=== PATIENT | female | born 1985 | race Caucasian/White ===

== ENCOUNTER 2021-08-24 06:46 | Emergency (ER) | payer OTHER, SELFPAY ==
[2021-08-24 06:54] VITALS: BP 126/97; PULSE 95; RESP 18; TEMP 36.7; O2SAT 99
[2021-08-24] MEDS: Lactated Ringers 1,000 ML 1000 ML IV (07:26)
[2021-08-24] MEDS: Droperidol 5 MG/2 ML VIAL 1.25 MG IVP (07:27)
[2021-08-24 07:28] LABS: Abs Immature Grans 0.04 10^3/uL (0.0-0.06); Absolute Basophil Count 0.05 10^3/uL (0.0-0.2); Absolute Monocyte Count 0.25 10^3/uL (0.1-0.8); Basophils % 0.3; Eosinophils % 0.1; HCT 41.7 % (36.0-46.0); HGB 14.9 g/dL (11.2-15.7); Immature Grans % 0.2; Lymphocytes % 5.4; MCH 31.2 pg (27.0-33.0); MCHC 35.7 % (32.0-36.0); MCV 87 fL (80-95); MPV 10.9 fL (8.0-11.0); Monocytes % 1.5; Neutrophils % 92.5; RBC 4.78 10^6/uL (3.93-5.22); RDW 11.5 % (11.7-14.6); RDW-SD 36.8 fL; WBC 16.52 10^3/uL (4.4-10.8)
[2021-08-24 07:31] LABS: Bilirubin Negative (Negative); Blood Moderate (Negative); Clarity Sl Cloudy (Clear); Glucose Negative (Negative); Ketones 80 mg/dL (Negative); Leukocyte Esterase Negative (Negative); Nitrite Negative (Negative); Specific Gravity 1.025 (1.005-1.025); Urobilinogen 0.2 EU/dL (Up TO 0.2); pH 8.5 (5-8)
[2021-08-24 07:32] LABS: Absolute Eosinophil Count 0.02 10^3/uL (0.0-0.7); Absolute Lymphocyte Count 0.89 10^3/uL (1.2-3.4); Absolute Neutrophil Count 15.28 10^3/uL (1.2-6.7)
--- NOTE | 2021-08-24 07:44 | ED.GENADUL_ITS ---
Discharge Plan Disposition Patient Disposition: STILL A PATIENT Condition: Serious Discharge Details Chief Complaint: Nausea/Vomit/Diar Clinical Impression: Severe nausea and vomiting Primary Care Provider: Unknown,Unknown ED Provider: Jag Choudhary Home Meds and New Rx's Prescriptions: No Action lorazepam [Ativan] 1 mg Tablet 1 mg PO DAILY PRN Medical Decision Making 35-year-old female here with severe pain and vomiting over the past 12 hours. Patient peers dehydrated. She does have some abdominal cramping and diffuse tenderness with no peritoneal findings. Plan to give droperidol 1.25 IV for nausea. IV fluid bolus. Will check labs to assess for biliary or pancreatic disease and electrolyte abnormalities. HPI General Mode of arrival: ambulatory . Date/Time Provider Initiated Documentation: 08/24/21 06:49 . Limitations to Documentation: no limitations . Information obtained by: patient . HPI Narrative: 35-year-old female presents with chief complaint of nausea. Patient notes nausea and associated vomiting for the past 12 hours. Symptoms are severe. Unable to tolerate any p.o. intake. Patient has associated diffuse abdominal cramping that started after vomiting. Related Data Home Medications Medication Instructions Recorded Confirmed lorazepam 1 mg tablet (Ativan) 1 mg PO DAILY PRN 08/24/21 08/24/21 Allergies Allergy/AdvReac Type Severity Reaction Status Date / Time acetaminophen [From Percocet] Allergy Unverified 08/24/21 07:00 Opioids - Morphine Analogues Allergy Unverified 08/24/21 07:00 oxycodone [From Percocet] Allergy Unverified 08/24/21 07:00 General Stated Complaint: Nausea/Vomit/Diar ANA: 3 Review of Systems All systems reviewed & are unremarkable except as noted in HPI and below Constitutional Constitutional: Denies fever(s) Gastrointestinal Gastrointestinal: Reports as per HPI PFSH All Active Problems (Updated 08/24/21 @ 08:13 by Jag Choudhary MD) Severe nausea and vomiting (Acute) Social History Smoking/Tobacco Use Status: Never Smoking risk assessment performed?: Yes Alcohol Intake: current Alcohol Intake frequency: a few times a week Drug use: Daily Substance use type: marijuana Do you feel safe at home: Yes Do you feel safe in your relationship?: Yes Exam Const General: cooperative and no acute distress HENMT Mouth: mucous membranes dry Eyes Conjunctivae: normal conjunctivae Sclera: normal sclerae Resp Auscultation: clear to auscultation bilaterally, no rales, no rhonchi and no wheezes Cardio Jugular venous pressure: no JVD Rate: regular rate and not tachycardic Rhythm: regular rhythm GI Palpation: soft, not firm, no guarding, no masses, not rigid and tender (Diffuse) with no rebound tenderness Skin General skin exam: no rashes or lesions noted Neuro General: patient alert, patient awake and tone normal Extrem General: no edema Psych Appearance: grossly normal Mental Status: mental status grossly normal Speech and Movement: speech and movement normal Course Vital Signs Vital signs: Vital Signs Temperature 36.7 C 08/24/21 06:54 Pulse 95 H 08/24/21 06:54 Respiratory Rate 18 08/24/21 06:54 Blood Pressure 126/97 H 08/24/21 06:54 Pulse Oximetry 99 08/24/21 06:54 Temperature 36.7 C 08/24/21 06:54 Pulse 95 H 08/24/21 06:54 Respiratory Rate 18 08/24/21 06:54 Blood Pressure 126/97 H 08/24/21 06:54 Pulse Oximetry 99 08/24/21 06:54 Lab/Test Results Lab/Test Results: Laboratory Tests Range/Units 08/24/21 08/24/21 06:55 07:13 Sodium Cancelled Potassium Cancelled Chloride Cancelled Carbon Dioxide Cancelled Anion Gap Cancelled BUN Cancelled Creatinine Cancelled Estimated GFR/1.73 m2 Cancelled Glucose Cancelled Calcium Cancelled Total Bilirubin Cancelled AST Cancelled ALT Cancelled Alkaline Phosphatase Cancelled Total Protein Cancelled Albumin Cancelled Urine Color (Yellow) Yellow Urine Clarity (Clear) Sl Cloudy Urine pH (5-8) 8.5 H Ur Specific [place] (1.005-1.025) 1.025 Urine Protein (Negative) mg/dL 30 H Urine Ketones (Negative) mg/dL 80 H Urine Blood (Negative) Moderate H Urine Nitrite (Negative) Negative Urine Bilirubin (Negative) Negative Urine Urobilinogen (Up TO 0.2) EU/dL 0.2 Ur Leukocyte Esterase (Negative) Negative Urine Glucose (Negative) mg/dL Negative POC- Test(urine) Negative
[2021-08-24 07:47] LABS: Bacteria Few HPF (Negative); C & S Indicated? Yes; Casts Negative LPF (Negative); Crystals Negative HPF (Negative); Epithelial Cells Few HPF (Negative); Mucus Moderate (Negative); WBC 0-2 HPF (0-5)
[2021-08-24 07:56] LABS: ALT 29 U/L (14-59); AST 24 U/L (15-37); Albumin 4.8 g/dL (3.4-5.0); Alkaline Phosphatase 73 U/L (46-116); Anion Gap 14.1 mmol/L (3-11); BUN 7 mg/dL (7-18); Bilirubin, Total 0.7 mg/dL (0.2-1.0); CO2 22.9 mmol/L (21.0-32.0); CREATININE 0.9 mg/dL (0.55-1.02); Calcium 9.5 mg/dL (8.5-10.1); Chloride 100 mmol/L (98-107); Glucose 144 mg/dL (74-106); Lipase 65 U/L (73-393); Magnesium 1.5 mg/dL (1.8-2.4); Potassium 3.8 mmol/L (3.5-5.1); Sodium 137 mmol/L (136-145); Total Protein 8.8 g/dL (6.4-8.2)
[2021-08-24 08:21] LABS: Diff Comment Agrees w/ Instrument; Platelet Count 342 10^3/uL (130-400); RBC Morphology Normal
--- NOTE | 2021-08-24 08:21 | NUR.NOTE ---
pt feels a lot better, nausea and vomittin have subsided.Briseida
--- NOTE | 2021-08-24 08:37 | W.EDPROG ---
Date of service: 08/24/21 Time of Service: 08:37 Medical Decision Making 35 yo female signed out to me pending reassessment of her symptoms of n/v and abdomen pain. she is now stating she feels significantly better and requesting to go home. She states she is not on her period, has blood in her urine and some bacteria, denies any dysuria but given the blood will treat as possible cystitis. She has no cva tenderness, no fevers so doubt pyelo. Her wbc is 16 which is likely reactive from the n/v. She tolerated po mag and will have her increase this in her diet. Advised to f/u with pcp and return precautions given Differential Diagnosis Differential Diagnosis: cannabinoid hyperemesis, uti, gastroenteritis Lab Data Lab results reviewed: Yes I reviewed the patient's lab results. Sign Out Sign Out Data: Sign Out Comment: Follow-up additional labs including CBC, reassess patient for disposition. Last updated by Jag Choudhary MD at 08/24/21 08:14 Discharge Plan Disposition Patient Disposition: HOME Condition: Stable Discharge Details Clinical Impression: Severe nausea and vomiting, Hematuria, Hypomagnesemia Primary Care Provider: Unknown,Unknown ED Provider: Luis Park Home Meds and New Rx's Prescriptions: New ondansetron 4 mg tablet,disintegrating 4 mg PO Q8H PRN (Reason: nausea and vomiting) Qty: 30 0RF nitrofurantoin monohyd/m-cryst [Macrobid] 100 mg capsule 100 mg PO Q12H 5 Days Qty: 10 0RF Rx Instructions: must administer with a meal/food Continued lorazepam [Ativan] 1 mg Tablet 1 mg PO DAILY PRN Discharge Instructions Instructions: Acute Nausea and Vomiting (ED), Hypomagnesemia (ED) Additional Instructions: you did have blood in your urine. You should follow up with your primary care provider within 2 weeks to see if this has cleared If you feel more ill, have severe worsening pain or persistent vomit despite medicaitons return to the emergency department
[2021-08-24] MEDS: Magnesium Chloride 64 MG TABCR PO (08:43)
[2021-08-24 08:48] VITALS: BP 132/76; PULSE 78; RESP 16; O2SAT 99
--- NOTE | 2021-08-28 13:41 | CMACTNOTE_ITS ---
- If Service Date Differs Date of service: 08/27/21 Time of Service: 13:42 Care Management Activity Note Laura is seen in the ED on 08/24/21 and again on 08/25/21 for nausea and vomiting. At the request of ED provider, ANETTE coordinates a referral to TORI Ospina, of [facility], on-call provider, to assist Lauar in obtaining a follow up appointment and in establishing care with a local PCP.
== END 2021-08-24 08:49 | disposition home or self-care (01) ==
PROVIDERS: Student in an Organized Health Care Education/Training Program; Emergency Provider Emergency Medicine
DX: R11.2 Nausea with vomiting, unspecified (principal); R31.9 Hematuria, unspecified; E83.42 Hypomagnesemia
CPT/HCPCS: 36415; 80053; 81025; 83690; 96361; 96374; 99284; 81003; 81015; 83735; 85025; 87086; J1790

== ENCOUNTER 2021-08-25 19:07 | Emergency (ER) | payer OTHER, SELFPAY ==
[2021-08-25 19:12] VITALS: BP 159/70; PULSE 73; RESP 14; TEMP 36.4; O2SAT 100
[2021-08-25 19:32] LABS: Abs Immature Grans 0.05 10^3/uL (0.0-0.06); Absolute Basophil Count 0.05 10^3/uL (0.0-0.2); Absolute Monocyte Count 0.55 10^3/uL (0.1-0.8); Absolute Neutrophil Count 12.64 10^3/uL (1.2-6.7); Basophils % 0.3; Eosinophils % 0.1; HCT 42.1 % (36.0-46.0); HGB 14.9 g/dL (11.2-15.7); Immature Grans % 0.3; MCH 31.1 pg (27.0-33.0); MCHC 35.4 % (32.0-36.0); MCV 88 fL (80-95); MPV 10.3 fL (8.0-11.0); Monocytes % 3.6; Neutrophils % 82.7; Platelet Count 347 10^3/uL (130-400); RBC 4.79 10^6/uL (3.93-5.22); RDW 11.6 % (11.7-14.6); RDW-SD 37.4 fL; WBC 15.28 10^3/uL (4.4-10.8)
[2021-08-25 19:33] LABS: Absolute Eosinophil Count 0.02 10^3/uL (0.0-0.7); Absolute Lymphocyte Count 1.99 10^3/uL (1.2-3.4)
[2021-08-25 19:45] LABS: ALT 24 U/L (14-59); AST 24 U/L (15-37); Albumin 4.5 g/dL (3.4-5.0); Alkaline Phosphatase 67 U/L (46-116); BUN 20 mg/dL (7-18); CREATININE 0.8 mg/dL (0.55-1.02); Calcium 9.3 mg/dL (8.5-10.1); Chloride 99 mmol/L (98-107); Glucose 105 mg/dL (74-106); Lipase 89 U/L (73-393); Potassium 3.4 mmol/L (3.5-5.1); Sodium 137 mmol/L (136-145); Total Protein 8.7 g/dL (6.4-8.2)
[2021-08-25] MEDS: Normal Saline 1,000 ML 1000 ML IV (19:52)
[2021-08-25] MEDS: Droperidol 5 MG/2 ML VIAL 1.25 MG IVP (19:52)
[2021-08-25 20:16] LABS: Bilirubin Small (Negative); Blood Moderate (Negative); Clarity Cloudy (Clear); Glucose Negative (Negative); Ketones >=160 mg/dL (Negative); Leukocyte Esterase Negative (Negative); Nitrite Negative (Negative); Specific Gravity >= 1.030 (1.005-1.025); Urobilinogen 0.2 EU/dL (Up TO 0.2)
--- NOTE | 2021-08-25 20:22 | ED.GENADUL_ITS ---
Discharge Plan Disposition Patient Disposition: HOME Condition: Improving Discharge Details Clinical Impression: Severe nausea and vomiting, Hypokalemia, Hematuria Primary Care Provider: Unknown,Unknown ED Provider: Tyler William Home Meds and New Rx's Prescriptions: Continued lorazepam [Ativan] 1 mg Tablet 1 mg PO DAILY PRN ondansetron 4 mg tablet,disintegrating 4 mg PO Q8H PRN (Reason: nausea and vomiting) Qty: 30 0RF nitrofurantoin monohyd/m-cryst [Macrobid] 100 mg capsule 100 mg PO Q12H 5 Days Qty: 10 0RF Rx Instructions: must administer with a meal/food Discharge Instructions Instructions: Acute Nausea and Vomiting (ED), Hematuria (ED), Hypokalemia (ED) Additional Instructions: Zofran and Macrobid as directed. I have given you a dose of Macrobid now and a take-home pack of Zofran. Plenty of fluids to avoid dehydration. Clear liquid diet, advance as tolerated. I have placed you on the care management list to help expedite outpatient primary care follow-up. Please watch for new or worsening symptoms and return to the ER for any concerns. Medical Decision Making This is a 35-year-old female, recently moved to this area, but does not have a primary care provider, denies any significant past medical history or abdominal surgeries, presents to the ER for 3-day history of abdominal cramping, nausea, vomiting, diarrhea yesterday but no diarrhea today. She does smoke marijuana on a daily basis. She was seen in the ER yesterday responded well to medications and was discharged with a prescription that she was unable to fill. Patient is concerned about dehydration. Reviewed the patient's visit from yesterday. Plan is to obtain IV access, give IV fluid, give IV droperidol as it worked well yesterday, obtain routine laboratory screening values and reassess. Abdomen is soft, nontender, low suspicion for acute abdomen. Low suspicion for pancreatitis, biliary colic, etc. No right lower quadrant pain, extremely low suspicion for appendicitis. Presentation not consistent with ovarian torsion. We did discuss that she smokes marijuana daily and discussed cannabinoid hyperemesis and she stated I am not fucking allergic to pot. Laboratory values reveal a white blood cell count of 15.28 which is actually improved when compared to yesterday. Potassium of 3.4, will give 40 p.o. Anion gap elevated at 17. She is receiving 1 L IV fluid. Upon arrival she was anxious and hyperventilating. Creatinine 0.8 with a GFR greater than 60. LFTs are unremarkable, lipase 89. Magnesium 2.0. Urinalysis reveals greater than 160 ketones. No signs of infection. She does have hematuria which is unchanged from yesterday. Upon reevaluation patient is resting comfortably, no longer dry heaving. She appears calm, no longer anxious or hyperventilating. She was able to tolerate the p.o. potassium without difficulty and has been no vomiting after her initial dose of antiemetics. The patient states that she is feeling improvement and is comfortable with discharge at this time. Clinically her her abdomen is soft, nontender, nonsurgical and her leukocytosis is improving when compared to yesterday. I see no clear indication for emergent CT imaging with IV contrast. I have placed her on the care management list to help expedite outpatient primary care follow-up as she is new to the area. I will provide her a take- home pack of Zofran to get her through the night until she can fill the prescription tomorrow. Patient was placed on Macrobid yesterday for potential UTI, I will give her dose of Macrobid now as well until she can fill her prescription tomorrow. Standard discharge and return precautions were provided. Patient understands, is agreeable to this plan, and has no additional questions or concerns upon discharge. This documentation was generated using [employer] dictation system, please disregard any oddities of phrase or misspellings. Medical Records Medical records reviewed: Yes I reviewed the patient's medical records. Lab Data Lab results reviewed: Yes I reviewed the patient's lab results. Labs: Laboratory Tests Range/Units 08/25/21 08/25/21 08/25/21 19:25 19:25 19:25 WBC (4.4-10.8) 10^3/uL 15.28 H RBC (3.93-5.22) 10^6/uL 4.79 Hgb (11.2-15.7) g/dL 14.9 Hct (36.0-46.0) % 42.1 MCV (80-95) fL 88 MCH (27.0-33.0) pg 31.1 MCHC (32.0-36.0) % 35.4 RDW (11.7-14.6) % 11.6 L Plt Count (130-400) 10^3/uL 347 MPV (8.0-11.0) fL 10.3 Immature Gran % 0.3 Neutrophils % 82.7 Lymphocytes % 13.0 Monocytes % 3.6 Eosinophils % 0.1 Basophils % 0.3 Nucleated RBC % (0.0-0.3) % 0.0 Absolute Neutrophils (1.2-6.7) 10^3/uL 12.64 H Absolute Lymphocytes (1.2-3.4) 10^3/uL 1.99 Absolute Monocytes (0.1-0.8) 10^3/uL 0.55 Absolute Eosinophils (0.0-0.7) 10^3/uL 0.02 Absolute Basophils (0.0-0.2) 10^3/uL 0.05 Sodium (136-145) mmol/L 137 Potassium (3.5-5.1) mmol/L 3.4 L Chloride (98-107) mmol/L 99 Carbon Dioxide (21.0-32.0) mmol/L 21.0 Anion Gap (3-11) mmol/L 17.0 H BUN (7-18) mg/dL 20 H Creatinine (0.55-1.02) mg/dL 0.8 Estimated GFR/1.73 m2 (mL/min/1.73m2) >= 60.00 Glucose (74-106) mg/dL 105 Calcium (8.5-10.1) mg/dL 9.3 Magnesium (1.8-2.4) mg/dL 2.0 Total Bilirubin (0.2-1.0) mg/dL 1.0 AST (15-37) U/L 24 ALT (14-59) U/L 24 Alkaline Phosphatase (46-116) U/L 67 Total Protein (6.4-8.2) g/dL 8.7 H Albumin (3.4-5.0) g/dL 4.5 Lipase (73-393) U/L 89 Urine Color (Yellow) Urine Clarity (Clear) Urine pH (5-8) Ur Specific [place] (1.005-1.025) Urine Protein (Negative) mg/dL Urine Ketones (Negative) mg/dL Urine Blood (Negative) Urine Nitrite (Negative) Urine Bilirubin (Negative) Urine Urobilinogen (Up TO 0.2) EU/dL Ur Leukocyte Esterase (Negative) Urine RBC (0-2) HPF Urine WBC (0-5) HPF Ur Epithelial Cells (Negative) HPF Urine Crystals (Negative) HPF Urine Bacteria (Negative) HPF Urine Mucus (Negative) Ur Culture Indicated? Urine Glucose (Negative) mg/dL Urine Opiates Screen (Negative) Urine Methadone Screen (Negative) Ur Barbiturates Screen (Negative) Ur Tricyclics Screen (Negative) Ur Amphetamines Screen (Negative) U Benzodiazepines Scrn (Negative) Urine Cocaine Screen (Negative) Ur THC Screen (Negative) Range/Units 08/25/21 08/25/21 20:10 20:10 WBC (4.4-10.8) 10^3/uL RBC (3.93-5.22) 10^6/uL Hgb (11.2-15.7) g/dL Hct (36.0-46.0) % MCV (80-95) fL MCH (27.0-33.0) pg MCHC (32.0-36.0) % RDW (11.7-14.6) % Plt Count (130-400) 10^3/uL MPV (8.0-11.0) fL Immature Gran % Neutrophils % Lymphocytes % Monocytes % Eosinophils % Basophils % Nucleated RBC % (0.0-0.3) % Absolute Neutrophils (1.2-6.7) 10^3/uL Absolute Lymphocytes (1.2-3.4) 10^3/uL Absolute Monocytes (0.1-0.8) 10^3/uL Absolute Eosinophils (0.0-0.7) 10^3/uL Absolute Basophils (0.0-0.2) 10^3/uL Sodium (136-145) mmol/L Potassium (3.5-5.1) mmol/L Chloride (98-107) mmol/L Carbon Dioxide (21.0-32.0) mmol/L Anion Gap (3-11) mmol/L BUN (7-18) mg/dL Creatinine (0.55-1.02) mg/dL Estimated GFR/1.73 m2 (mL/min/1.73m2) Glucose (74-106) mg/dL Calcium (8.5-10.1) mg/dL Magnesium (1.8-2.4) mg/dL Total Bilirubin (0.2-1.0) mg/dL AST (15-37) U/L ALT (14-59) U/L Alkaline Phosphatase (46-116) U/L Total Protein (6.4-8.2) g/dL Albumin (3.4-5.0) g/dL Lipase (73-393) U/L Urine Color (Yellow) Yellow Urine Clarity (Clear) Cloudy Urine pH (5-8) 6.0 Ur Specific [place] (1.005-1.025) >= 1.030 H Urine Protein (Negative) mg/dL 30 H Urine Ketones (Negative) mg/dL >=160 H Urine Blood (Negative) Moderate H Urine Nitrite (Negative) Negative Urine Bilirubin (Negative) Small H Urine Urobilinogen (Up TO 0.2) EU/dL 0.2 Ur Leukocyte Esterase (Negative) Negative Urine RBC (0-2) HPF 0-2 Urine WBC (0-5) HPF 3-5 Ur Epithelial Cells (Negative) HPF Many Urine Crystals (Negative) HPF Negative Urine Bacteria (Negative) HPF Few Urine Mucus (Negative) Heavy Ur Culture Indicated? No Urine Glucose (Negative) mg/dL Negative Urine Opiates Screen (Negative) Negative Urine Methadone Screen (Negative) Negative Ur Barbiturates Screen (Negative) Negative Ur Tricyclics Screen (Negative) Negative Ur Amphetamines Screen (Negative) Negative U Benzodiazepines Scrn (Negative) Negative Urine Cocaine Screen (Negative) Negative Ur THC Screen (Negative) Positive A HPI General Mode of arrival: ambulatory . Date/Time Provider Initiated Documentation: 08/25/21 19:07 . Limitations to Documentation: no limitations . Information obtained by: patient and family . History of Present Illness 35 year old F presents to the emergency department with the chief complaint of Nausea and vomiting, described as moderate, with intensity rated at 5. Quality is described as other (Cramping), and is localized to the abdomen. Patient reports no radiation. Patient started experiencing this day(s) (3) and it has been intermittent. No relieving factors improve symptom(s), No exacerbating factors reported . Patient notes nausea/vomiting and other (Diarrhea yesterday, none today). Patient did receive the following treatments prior to arrival, none Related Data Home Medications Medication Instructions Recorded Confirmed lorazepam 1 mg tablet (Ativan) 1 mg PO DAILY PRN 08/24/21 08/24/21 nitrofurantoin 100 mg PO Q12H 5 days #10 caps 08/24/21 monohydrate/macrocrystals 100 mg capsule (Macrobid) ondansetron 4 mg disintegrating 4 mg PO Q8H PRN nausea and 08/24/21 tablet vomiting #30 tabs Previous Rx's Medication Instructions Recorded nitrofurantoin 100 mg PO Q12H 5 days #10 caps 08/24/21 monohydrate/macrocrystals 100 mg capsule (Macrobid) ondansetron 4 mg disintegrating 4 mg PO Q8H PRN nausea and 08/24/21 tablet vomiting #30 tabs Allergies Allergy/AdvReac Type Severity Reaction Status Date / Time acetaminophen [From Percocet] Allergy Unverified 08/25/21 19:17 Opioids - Morphine Analogues Allergy Unverified 08/25/21 19:17 oxycodone [From Percocet] Allergy Unverified 08/25/21 19:17 General Stated Complaint: Nausea/Vomit/Diar ANA: 3 Review of Systems Constitutional Constitutional: Denies fever(s) and Reports weakness (Generalized) Cardiovascular Cardiovascular: Denies chest pain and Denies dyspnea Respiratory Respiratory: Denies cough and Denies dyspnea Gastrointestinal Gastrointestinal: Reports abdominal pain, Denies constipation, Reports diarrhea (Yesterday), Reports nausea and Reports vomiting Genitourinary Genitourinary: Denies dysuria Musculoskeletal Musculoskeletal: Denies back pain Integumentary/Breasts Skin/Breast: Denies rash Neurologic Neurologic: Reports weakness (Generalized) PFSH All Active Problems (Updated 08/25/21 @ 21:32 by DINO Fung) Severe nausea and vomiting (Acute) Hematuria (Acute) Hypomagnesemia (Acute) Hypokalemia (Acute) Social History Smoking/Tobacco Use Status: Never Smoking risk assessment performed?: Yes Alcohol Intake: current Alcohol Intake frequency: a few times a week Drug use: Daily Substance use type: marijuana Do you feel safe at home: Yes Do you feel safe in your relationship?: Yes Exam Const General: cooperative, healthy appearing, comfortable, anxious and other (Occasionally dry heaving) Orientation: alert, awake and oriented x3 HENMT Head: normal to inspection, normocephalic and atraumatic Face and sinus: normal facial exam Mouth: moist mucous membranes Eyes General: appearance normal, both eyes and all related structures Conjunctivae: conjunctivae normal Neck Neck: normal visual inspection, full ROM, trachea midline and supple Resp Effort & Inspection: able to speak in complete sentences and other (Mild hyperventilation) Auscultation: clear to auscultation bilaterally Cardio Rate: regular rate Rhythm: regular rhythm GI Inspection: normal to inspection Palpation: soft, not firm, no guarding, no pulsatile masses and nontender Auscultation: normal bowel sounds Back/Spine/Pelvis Back: No back tenderness Skin General skin exam: no rashes or lesions noted Neuro General: patient alert, patient awake, patient oriented x3, moves all extremities and no focal motor deficits Cognition: normal cognition Speech: speech normal Gait: normal gait Motor: muscle tone normal throughout Sensory Exam: no sensory deficits noted Extrem General: normal to inspection, full ROM and capillary refill normal Psych Appearance: grossly normal Mental Status: mental status grossly normal Course Vital Signs Vital signs: Vital Signs Temperature 36.4 C L 08/25/21 19:12 Pulse 73 08/25/21 19:12 Respiratory Rate 14 08/25/21 19:12 Blood Pressure 159/70 H 08/25/21 19:12 Pulse Oximetry 100 08/25/21 19:12 Temperature 36.4 C L 08/25/21 19:12 Temperature Source Temporal Artery Scan 08/25/21 19:12 Pulse 73 08/25/21 19:12 Respiratory Rate 14 08/25/21 19:12 Respiratory Effort Non-Labored 08/25/21 19:15 Blood Pressure 159/70 H 08/25/21 19:12 Blood Pressure Position Supine 08/25/21 19:12 Pulse Oximetry 100 08/25/21 19:12 Oxygen Delivery Method Room Air 08/25/21 19:12 Oxygen Flow Rate 0 08/25/21 19:12 Pain Level 0 08/25/21 19:12 Lab/Test Results Lab/Test Results: Laboratory Tests Range/Units 08/25/21 08/25/21 08/25/21 19:25 19:25 19:25 WBC (4.4-10.8) 10^3/uL 15.28 H RBC (3.93-5.22) 10^6/uL 4.79 Hgb (11.2-15.7) g/dL 14.9 Hct (36.0-46.0) % 42.1 MCV (80-95) fL 88 MCH (27.0-33.0) pg 31.1 MCHC (32.0-36.0) % 35.4 RDW (11.7-14.6) % 11.6 L Plt Count (130-400) 10^3/uL 347 MPV (8.0-11.0) fL 10.3 Immature Gran % 0.3 Neutrophils % 82.7 Lymphocytes % 13.0 Monocytes % 3.6 Eosinophils % 0.1 Basophils % 0.3 Nucleated RBC % (0.0-0.3) % 0.0 Absolute Neutrophils (1.2-6.7) 10^3/uL 12.64 H Absolute Lymphocytes (1.2-3.4) 10^3/uL 1.99 Absolute Monocytes (0.1-0.8) 10^3/uL 0.55 Absolute Eosinophils (0.0-0.7) 10^3/uL 0.02 Absolute Basophils (0.0-0.2) 10^3/uL 0.05 Sodium (136-145) mmol/L 137 Potassium (3.5-5.1) mmol/L 3.4 L Chloride (98-107) mmol/L 99 Carbon Dioxide (21.0-32.0) mmol/L 21.0 Anion Gap (3-11) mmol/L 17.0 H BUN (7-18) mg/dL 20 H Creatinine (0.55-1.02) mg/dL 0.8 Estimated GFR/1.73 m2 (mL/min/1.73m2) >= 60.00 Glucose (74-106) mg/dL 105 Calcium (8.5-10.1) mg/dL 9.3 Magnesium (1.8-2.4) mg/dL 2.0 Total Bilirubin (0.2-1.0) mg/dL 1.0 AST (15-37) U/L 24 ALT (14-59) U/L 24 Alkaline Phosphatase (46-116) U/L 67 Total Protein (6.4-8.2) g/dL 8.7 H Albumin (3.4-5.0) g/dL 4.5 Lipase (73-393) U/L 89 Urine Color (Yellow) Urine Clarity (Clear) Urine pH (5-8) Ur Specific [place] (1.005-1.025) Urine Protein (Negative) mg/dL Urine Ketones (Negative) mg/dL Urine Blood (Negative) Urine Nitrite (Negative) Urine Bilirubin (Negative) Urine Urobilinogen (Up TO 0.2) EU/dL Ur Leukocyte Esterase (Negative) Urine Glucose (Negative) mg/dL Range/Units 08/25/21 20:10 WBC (4.4-10.8) 10^3/uL RBC (3.93-5.22) 10^6/uL Hgb (11.2-15.7) g/dL Hct (36.0-46.0) % MCV (80-95) fL MCH (27.0-33.0) pg MCHC (32.0-36.0) % RDW (11.7-14.6) % Plt Count (130-400) 10^3/uL MPV (8.0-11.0) fL Immature Gran % Neutrophils % Lymphocytes % Monocytes % Eosinophils % Basophils % Nucleated RBC % (0.0-0.3) % Absolute Neutrophils (1.2-6.7) 10^3/uL Absolute Lymphocytes (1.2-3.4) 10^3/uL Absolute Monocytes (0.1-0.8) 10^3/uL Absolute Eosinophils (0.0-0.7) 10^3/uL Absolute Basophils (0.0-0.2) 10^3/uL Sodium (136-145) mmol/L Potassium (3.5-5.1) mmol/L Chloride (98-107) mmol/L Carbon Dioxide (21.0-32.0) mmol/L Anion Gap (3-11) mmol/L BUN (7-18) mg/dL Creatinine (0.55-1.02) mg/dL Estimated GFR/1.73 m2 (mL/min/1.73m2) Glucose (74-106) mg/dL Calcium (8.5-10.1) mg/dL Magnesium (1.8-2.4) mg/dL Total Bilirubin (0.2-1.0) mg/dL AST (15-37) U/L ALT (14-59) U/L Alkaline Phosphatase (46-116) U/L Total Protein (6.4-8.2) g/dL Albumin (3.4-5.0) g/dL Lipase (73-393) U/L Urine Color (Yellow) Yellow Urine Clarity (Clear) Cloudy Urine pH (5-8) 6.0 Ur Specific [place] (1.005-1.025) >= 1.030 H Urine Protein (Negative) mg/dL 30 H Urine Ketones (Negative) mg/dL >=160 H Urine Blood (Negative) Moderate H Urine Nitrite (Negative) Negative Urine Bilirubin (Negative) Small H Urine Urobilinogen (Up TO 0.2) EU/dL 0.2 Ur Leukocyte Esterase (Negative) Negative Urine Glucose (Negative) mg/dL Negative PAWSS Have you Been Recently Intoxicated or Drunk Within the Last 30 days?: No Have you Ever Experienced Previous Episodes of Alcohol Withdrawal?: No Have you ever Experienced Withdrawal Seizures?: No Have you ever Experienced Delirium Tremens(DT)s?: No Have you ever undergone Alcohol Rehabilitation Treatment (i.e, inpt ot outpatient treatment programs)?: No Have you ever Experienced Blackouts?: No Have you ever Combined Alcohol with any other Substance of Abuse during the last 90 days?: No Positive Blood Alcohol level on Presentation? [PCS.BAL]: No Evidence of Increased Autonomic Activity (i.e. HR>120, tremor, sweating, agitation, nausea)?: No Result: 0
[2021-08-25 20:24] LABS: Bacteria Few HPF (Negative); C & S Indicated? No; Crystals Negative HPF (Negative); Epithelial Cells Many HPF (Negative); Mucus Heavy (Negative); RBC 0-2 HPF (0-2)
[2021-08-25 20:31] LABS: *AMPHETAMINES SCREEN URINE Negative (Negative); *BARBITURATES SCREEN URINE Negative (Negative); *BENZODIAZEPINES SCREEN URINE Negative (Negative); Cannabinoids THC Positive (Negative); Cocaine Screen,Urine Negative (Negative); METHADONE URINE SCREEN Negative (Negative); OPIATES URINE SCREEN Negative (Negative); Tricyclic Antidepressants Negative (Negative)
[2021-08-25] MEDS: Potassium Chloride 20 MEQ TABCR 40 MEQ PO (20:38)
[2021-08-25] MEDS: Ondansetron O.D.T. 4 MG TABEF, 3 TABS/BTL PO (20:38)
== END 2021-08-25 22:01 | disposition home or self-care (01) ==
PROVIDERS: Emergency Provider Physician Assistant
DX: R11.2 Nausea with vomiting, unspecified (principal); E87.6 Hypokalemia; R31.9 Hematuria, unspecified
CPT/HCPCS: 80053; 80307; 81025; 83690; 96361; 96374; 99284; 81003; 81015; 83735; 85025; J1790

== ENCOUNTER 2023-11-24 11:15 | Outpatient (REF) | payer OTHER, SELFPAY ==
--- NOTE | 2023-11-24 11:00 | PAPFT_PTH ---
PATIENT: Laura Banerjee LOC: [facility] U#:[id number] AGE/SX: 37/F ROOM: RE11/24/[address]: Rachel Park NP : 1985 BED: DIS: 11/24/2023 SPEC #: [id number] RECD: 11/24/23 12:59 STATUS: DAMIAN REHeidy #: [id number] VAISHALI: 11/24/23 11:[address]: Rachel Park NP DEPT: [facility] Cytology RECD BY: Mary Anne Groves ENTERED: 11/24/23 12:59 SP TYPE: PAPFT OTHR DR: Shahram No DNP Tissues: 1 - CX/ENDOCX FOR PAP SMEARS Procedures: PAP THIN PREP/[facility] Screening HPV DNA PROBE Comments: [id number] (HPV 16 & 18/45)
== END 2023-11-24 11:16 | disposition home or self-care (01) ==
LOC: LBN 11:15
PROVIDERS: PCP Nurse Practitioner Family; Visit Provider Nurse Practitioner Women's Health
DX: Z01.419 Encounter for gynecological examination (general) (routine) without abnormal findings (principal); Z12.4 Encounter for screening for malignant neoplasm of cervix; Z78.9 Other specified health status
CPT/HCPCS: 88142; 87624

== ENCOUNTER 2024-05-09 08:14 | Outpatient (CLI) | payer OTHER, SELFPAY ==
--- NOTE | 2024-05-09 07:45 | DI.RAD_ITS ---
Exam(s) XR CHEST 2V PA LATERAL EXAM: XR CHEST 2V PA LATERAL CLINICAL HISTORY: Cough and SOB,R05.9 TECHNIQUE: 2D digital imaging was performed. Two views. COMPARISON: No exams were available for comparison FINDINGS: HEART: Normal size. Aorta: Not dilated. PULMONARY VASCULATURE: Normal. MEDIASTINUM: Unremarkable. LUNGS: Clear. PLEURAL SPACE: No pleural effusion or pneumothorax. BONE:Unremarkable for age. SOFT TISSUES: Unremarkable. IMPRESSION: No acute abnormality. DATA REPOSITORY: RADIATION DOSE DELIVERED:
--- NOTE | 2024-05-09 08:01 | DI.VRAD_ITS ---
PROCEDURE INFORMATION: Exam: XR Chest Exam date and time: 05/09/2024 7:32 AM Age: 38 years old Clinical indication: Cough and shortness of breath; Cough and SOB TECHNIQUE: Imaging protocol: Radiologic exam of the chest. Views: 2 views. COMPARISON: No relevant prior studies available. FINDINGS: Lungs: No focal consolidation seen. Pleural spaces: No large pleural effusion seen. Heart/Mediastinum: No cardiomegaly. Bones/joints: No acute abnormality. IMPRESSION: No acute findings to explain reported symptoms. Dictated and Authenticated by: Desi Valdes MD. Orderin Myranda Galeano MD
== END 2024-05-09 08:34 ==
LOC: DI 08:15
PROVIDERS: PCP Nurse Practitioner Family; Visit Provider Physician Assistant
DX: R05.9 Cough, unspecified (principal)
CPT/HCPCS: 71046

== ENCOUNTER 2024-05-17 14:06 | Outpatient (CLI) | payer OTHER, SELFPAY ==
[2024-05-17 21:21] LABS: HCT 41.9 % (36.0-46.0); MCH 29.3 pg (27.0-33.0); MCHC 33.4 % (32.0-36.0); MCV 88 fL (80-95); MPV 10.8 fL (8.0-11.0); Platelet Count 376 10^3/uL (130-400); RBC 4.78 10^6/uL (3.93-5.22); RDW 12.9 % (11.7-14.6); RDW-SD 40.9 fL; WBC 10.86 10^3/uL (4.4-10.8)
[2024-05-17 21:45] LABS: Anion Gap 11.8 mmol/L (3-11); BUN 8 mg/dL (7-18); CO2 26.2 mmol/L (21.0-32.0); CREATININE 0.7 mg/dL (0.55-1.02); Calcium 9.5 mg/dL (8.5-10.1); Chloride 103 mmol/L (98-107); Estimated GFR 112.75 (mL/min/1.73m2); Ferritin 18 ng/mL (8-252); Glucose 91 mg/dL (74-106); Sodium 141 mmol/L (136-145)
[2024-05-17 21:56] LABS: Iron 40 ug/dL (50-170)
== END 2024-05-17 14:07 | disposition home or self-care (01) ==
LOC: DI.CM 14:07 → LBN 21:13
PROVIDERS: PCP Nurse Practitioner Family; Visit Provider Nurse Practitioner Family
DX: G25.81 Restless legs syndrome (principal); Z13.1 Encounter for screening for diabetes mellitus; R00.2 Palpitations; Z86.79 Personal history of other diseases of the circulatory system; H91.90 Unspecified hearing loss, unspecified ear
CPT/HCPCS: 80048; 85027; 82728; 83540

== ENCOUNTER 2024-07-01 13:11 | Outpatient (CLI) | payer OTHER, SELFPAY ==
--- NOTE | 2024-07-01 12:30 | DI.RAD_ITS ---
Exam(s) XR CHEST 2V PA LATERAL EXAM: XR CHEST 2V PA LATERAL CLINICAL HISTORY: notified of +quantiferon gold blood test, R76.12. TECHNIQUE: 2D digital imaging was performed. COMPARISON: CR,XR XR CHEST 2V PA LATERAL from 05/09/2024 FINDINGS: 2 views: Heart size is normal. The mediastinum is not widened. Lungs are clear. No infiltrates nor pleural effusions. IMPRESSION: No acute pulmonary findings. DATA REPOSITORY: RADIATION DOSE DELIVERED:
== END 2024-07-01 13:31 ==
PROVIDERS: PCP Nurse Practitioner Family; Visit Provider Nurse Practitioner Family
DX: R76.12 Nonspecific reaction to cell mediated immunity measurement of gamma interferon antigen response without active tuberculosis (principal)
CPT/HCPCS: 71046

== ENCOUNTER 2024-09-23 08:45 | Outpatient (CLI) | payer OTHER, SELFPAY ==
--- NOTE | 2024-09-23 08:15 | DI.RAD_ITS ---
Exam(s) XR KNEE RT 4V AP,LAT,MORIS,PAT EXAM: XR KNEE RT 4V AP,LAT,MORIS,PAT CLINICAL HISTORY: RIGHT KNEE PAIN. TECHNIQUE: 2D digital imaging was performed. COMPARISON: No exams were available for comparison FINDINGS: Four views No evidence fracture. Small amount of increased joint fluid noted. Bone density normal. No osseous lesions. No osteochondral defects. No degenerative changes evident. IMPRESSION: No acute osseous findings. There appears to be a small joint effusion. This may signify internal derangement. DATA REPOSITORY: RADIATION DOSE DELIVERED:
== END 2024-09-23 08:46 | disposition home or self-care (01) ==
LOC: DIORS 08:45
PROVIDERS: PCP Nurse Practitioner Family; Visit Provider Physician Assistant
DX: M25.561 Pain in right knee (principal)
CPT/HCPCS: 73564

== ENCOUNTER 2025-02-19 04:50 | Emergency (ER) | payer BC, SELFPAY ==
[2025-02-19] VITALS (62 sets, daily range): BP systolic 89–160; BP diastolic 51–90; PULSE 65–117; RESP 11–33; TEMP 36.9–37.5; O2SAT 92–100
--- NOTE | 2025-02-19 04:45 | RT.EKG_ITS ---
APPROVED REPORT Exam: Resting ECG Reason for Exam: Cheest Pain Patient Location: E HR:88 bpm ECG Measurements Heart Rate 88 AXIS PA 114 P 46 QRSd 79 QRS 77 QT 447 T 65 QTc 540 Conclusion Sinus rhythm...normal P axis, V-rate 60- 99 Consider left ventricular hypertrophy...(S V1+R V5/V6) >3.25mV Prolonged QT interval...QTc >510mS no ST segment or T wave abnormmalities to suggest occlusive MA.
--- NOTE | 2025-02-19 05:21 | ED.GENADUL_ITS ---
Discharge Plan Discharge Details Chief Complaint: Chest Pain Clinical Impression: Cannabinoid hyperemesis syndrome, Hypokalemia, Prolonged Q-T interval on ECG Primary Care Provider: Shahram Guzmán ED Provider: Brooke Winter Home Meds and New Rx's Prescriptions: No Action clonazepam [Klonopin] 0.5 mg tablet 0.5 mg PO QHS Qty: 5 0RF Rx Instructions: administer 30 minutes before bedtime sertraline 50 mg tablet 50 mg PO DAILY Qty: 90 3RF triamcinolone acetonide 0.1 % cream 1 applic topical TID PRN (Reason: rash) Qty: 30 0RF medroxyprogesterone [Depo-Provera] 150 mg/mL syringe 150 mg IM [id number] Qty: 1 4RF HPI General Mode of arrival: ambulatory . Date/Time Provider Initiated Documentation: 02/19/25 04:54 . Limitations to Documentation: no limitations . Information obtained by: patient and old records reviewed . HPI Narrative: 39yo F with hx cannaboid hyperemesis presenting with nausea and vomiting. Symptoms started two days ago and have been persistent and worsening since then. Constant vomiting, nonbloody nonbilious, not able to keep anything down. So metime yesterday developed chest/epistaric pain, burning, constant, non radiating. No difficultly breathing. No abdominal pain. Not sure about diarrhea. No sick contacts, no recent head injuries. No THC since Thursday so she does not believe her N/V today is related to her pot use. Otherwise in her usual state of health with no fevers, chills, rash, headache, dysuria, hematuria, or other concerns. Related Data Home Medications ?Medication ?Instructions ?Recorded ?Confirmed triamcinolone acetonide 0.1 % 1 applic topical TID PRN rash #30 05/17/24 02/19/25 topical cream grams medroxyprogesterone 150 mg/mL 150 mg IM [id number] #1 mL 09/28/24 02/19/25 intramuscular syringe (Depo-Provera) clonazepam 0.5 mg tablet (Klonopin) 0.5 mg PO QHS #5 t abs 10/12/24 02/19/25 Held on 02/19/25. Instructions: Pt Stopped/Never Started sertraline 50 mg tablet 50 mg PO DAILY #90 tabs 10/1402/19/25 Held on 02/19/25. Instructions: Pt Stopped/Never Started Previous Rx's ?Medication ?Instructions ?Recorded triamcinolone acetonide 0.1 % 1 applic topical TID PRN rash #30 05/17/24 topical cream grams medroxyprogesterone 150 mg/mL 150 mg IM [id number] #1 mL 09/28/24 intramuscular syringe (Depo-Provera) clonazepam 0.5 mg tablet (Klonopin) 0.5 mg PO QHS #5 t abs 10/12/24 Held on 02/19/25. Instructions: Pt Stopped/Never Started sertraline 50 mg tablet 50 mg PO DAILY #90 tabs 10/14 11/07 Held on 02/19/25. Instructions: Pt Stopped/Never Started Allergies Allergy/AdvReac Type Severity Reaction Status Date / Time acetaminophen (From Percocet) Allergy Unsure Unverified 10/31/24 14:37 Opioids - Morphine Analogues Allergy Unknown Unverified 10/31/24 14:37 oxycodone (From Percocet) Allergy Unknown Unverified 10/31/24 14:37 General Stated Complaint: Chest Pain ANA: 2 Exam Narrative Exam Narrative: General: Alert, dry heaving Head: Normocephalic, atraumatic Neck: Trachea midline, ?Neck supple. ENT: ?MMM.? . Cardiac: ?RRR, no murmurs appreciated Resp: No respiratory distress. CTAB. Abd: ?Soft, non-distended, nontender. No epigastric tenderness. Negative hernandez's. : ?No suprapubic tenderness. No CVA tenderness. Extremities: ?No deformities.? No peripheral edema. Neurologic: GCS 15. ? Moves all extremities freely against gravity Course Vital Signs Vital signs: Respiratory Effort Normal 02/19/25 05:07 Respiratory Depth Normal 02/19/25 05:07 Respiratory Pattern Normal 02/19/25 05:07 Pain Level 0 02/19/25 05:07 Medical Decision Making 39yo F with hx cannaboid hyperemesis presenting with nausea and vomiting. Symptoms started two days ago and have been persistent and worsening since then; sometime yesterday developed chest/epigastric pain. Hypertensive 160/90 on arrival (dry heaving), vital signs otherwise reassuring. Appears adequately hydrated. No abdominal or epigastric tenderness; no indication for CT imaging. -EKG SR, no ST segment or T wave abnormalities to suggest occlusive CO; does have prolonged QTC at [address] . Will give 1L IVFB and IV ativan for N/V given QT. -Labs reviewed as below, CBC with mild leukocytosis at 13 (nonspecific), CMP with hypokalemia at 3.2 (given QT abnormality and vomiting, will give IV replacement, Mg normal (is getting IV Mg regardless for QTc), lipase not suggestive of pancreatits, troponin negative with with one hour repeat also negative (would not further pursue ACS). negative. -CXR independently reviewed; no focal pneumonia or pneumothorax on my view, radiology read pending. Discussed EKG findings with patient; no family history of congenial arrhythmias or cardiac disease; mother did have heart failure a young age attributed to broken heart syndrome and has a pacemaker in place. She reports that she has been taking zofran at home and taking 8mg- this may be the etiology as QTc was normal on EKG in May of this year. Will be signed out to oncoming physician pending IV K and Mg replacement, PO challenge, repeat EKG. Lab Data Lab results reviewed: Yes I reviewed the patient's lab results. Labs: Laboratory Tests Range/Units 02/19/25 02/19/25 05:03 06:19 WBC (4.4-10.8) 10^3/uL 13.84 H RBC (3.93-5.22) 10^6/uL 4.73 Hgb (11.2-15.7) g/dL 12.8 Hct (36.0-46.0) % 37.5 MCV (80-95) fL 79 L MCH (27.0-33.0) pg 27.1 MCHC (32.0-36.0) % 34.1 RDW (11.7-14.6) % 13.8 Plt Count (130-400) 10^3/uL 450 H MPV (8.0-11.0) fL 10.7 Immature Gran % % 0.3 Neutrophils % % 64.2 Lymphocytes % % 26.4 Monocytes % % 8.4 Eosinophils % % 0.1 Basophils % % 0.6 Nucleated RBC % (0.0-0.3) % 0.0 Absolute Neutrophils (1.2-6.7) 10^3/uL 8.89 H Absolute Lymphocytes (1.2-3.4) 10^3/uL 3.65 H Absolute Monocytes (0.1-0.8) 10^3/uL 1.16 H Absolute Eosinophils (0.0-0.7) 10^3/uL 0.01 Absolute Basophils (0.0-0.2) 10^3/uL 0.08 Sodium (136-145) mmol/L 142 Potassium (3.5-5.1) mmol/L 3.2 L Chloride (98-107) mmol/L 106 Carbon Dioxide (20.0-31.0) mmol/L 19.8 L Anion Gap (3-11) mmol/L 16.2 H BUN (9-23) mg/dL 14 Creatinine (0.55-1.02) mg/dL 0.76 Est GFR (CKD-EPI 2020) (mL/min/1.73m2) 84.23 Glucose (74-106) mg/dL 133 H Calcium (8.3-10.6) mg/dL 10.0 Magnesium (1.6-2.6) mg/dL 1.9 Total Bilirubin (0.2-1.2) mg/dL 0.60 AST (<34) U/L 25 ALT (10-49) U/L 13 Alkaline Phosphatase (46-116) U/L 68 Troponin I (<35) ng/L < 3 < 3 Total Protein (5.7-8.2) g/dL 8.2 Albumin (3.2-5.0) g/dL 5.0 Lipase (<53) U/L 39 Serum HCG, Qual Negative PFSH All Active Problems (Updated 02/19/25 @ 07:05 by Brooke Winter MD) Prolonged Q-T interval on ECG (Acute) Hypokalemia (Acute) Cannabinoid hyperemesis syndrome (Acute) Patellofemoral arthralgia of right knee (Acute) On Depo-Provera for contraception (Acute) 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) Personal history of cardiac murmur (Acute) Hearing loss (Acute) Restless legs (Acute) Encounter for surveillance of injectable contraceptive (Acute) Arthritis (Acute) Dysthymic disorder (Acute) Nontoxic goiter (Acute) Anxiety (Chronic) Surgical History H/O hand surgery R hand tendon surgery Family History (Updated 11/24/23 @ 11:23 by Rachel Park NP) Father Alcohol use disorder Hyperlipidemia Substance use disorder Chronic mental illness Maternal Grandfather Cancer Colon cancer Mother Heart failure Social History (Updated 05/18/24 @ 13:36 by Ruma Atkins) Smoking/Tobacco Use Status: Former Tobacco Use tobacco type: cigarettes Quit Date: 03/16/14 Tobacco: How many years used: 3 Second Hand Exposure: Yes Smoking risk assessment performed?: Yes Alcohol Intake: current Alcohol Intake frequency: holidays/special occasions only Alcohol type: wine Drug use: Daily Substance use type: marijuana Adopted: No Caregiver/Support person: No Foster care: No Household members: none Housing: house Number of Children: 0 Communication Needs: Hard of Hearing Education Level: college Details: some Do you need help understanding health information?: Rarely 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 Pets and animals: Yes Pets and animals: cat(s) Sexually active: Yes Do you think of yourself as: straight/heterosexual Current gender identity: female How often do you talk on the phone with friends or family?: three or more times per week How often do you get together with friends or relatives?: twice per week How often do you attend jehovah's witness or nondenominational services?: 1-3 times per year Do you belong to any clubs or organized social groups?: no Panel score (0-1 are the most socially isolated patients): 1 Mariza/Anglican: Mormon Agree to transfusion: Yes Seatbelt use: sometimes Helmet use: Yes Helmet use: never Drive intox or ride w/intox 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
[2025-02-19] MEDS: LORazepam 2 MG/ML VIAL IVP (05:27)
[2025-02-19] MEDS: Normal Saline 1,000 ML 1000 ML IV ×2 (05:27→09:40)
[2025-02-19 05:28] LABS: Abs Immature Grans 0.04 10^3/uL (0.0-0.06); HCT 37.5 % (36.0-46.0); HGB 12.8 g/dL (11.2-15.7); Immature Grans % 0.3 %; MCH 27.1 pg (27.0-33.0); MCHC 34.1 % (32.0-36.0); MCV 79 fL (80-95); MPV 10.7 fL (8.0-11.0); Platelet Count 450 10^3/uL (130-400); RBC 4.73 10^6/uL (3.93-5.22); RDW 13.8 % (11.7-14.6); RDW-SD 39.4 fL; WBC 13.84 10^3/uL (4.4-10.8)
[2025-02-19 05:38] LABS: HCG Qual (Serum) Negative
[2025-02-19 05:45] LABS: Lipase 39 U/L (<53); Magnesium 1.9 mg/dL (1.6-2.6)
[2025-02-19 05:47] LABS: ALT 13 U/L (10-49); AST 25 U/L (<34); Albumin 5.0 g/dL (3.2-5.0); Alkaline Phosphatase 68 U/L (46-116); Anion Gap 16.2 mmol/L (3-11); BUN 14 mg/dL (9-23); Bilirubin, Total 0.60 mg/dL (0.2-1.2); CO2 19.8 mmol/L (20.0-31.0); Calcium 10.0 mg/dL (8.3-10.6); Chloride 106 mmol/L (98-107); Glucose 133 mg/dL (74-106); Potassium 3.2 mmol/L (3.5-5.1); Sodium 142 mmol/L (136-145); Total Protein 8.2 g/dL (5.7-8.2)
[2025-02-19 05:48] LABS: Troponin I < 3 ng/L (<35)
--- NOTE | 2025-02-19 06:01 | NUR.NOTE ---
PT gave verbal permission to tell [place] medical information. PT stated that she might not be on her HIPPA yet. Nursing Note:
--- NOTE | 2025-02-19 06:02 | DI.RAD_ITS ---
Exam(s) XR CHEST 2V PA LATERAL EXAM: XR CHEST 2V PA LATERAL CLINICAL HISTORY: chest pain. TECHNIQUE: 2D digital imaging was performed. COMPARISON: Prior chest x-ray 07/01/2024 FINDINGS: 2 views: Heart size is normal. The mediastinum is not widened. Lungs are clear. No infiltrates nor pleural effusions. IMPRESSION: No acute pulmonary findings. DATA REPOSITORY: RADIATION DOSE DELIVERED:
[2025-02-19] MEDS: POTASSIUM CHLORIDE 20 MEQ/100 ML BAG 50 MEQ IV_INF (06:08)
[2025-02-19 06:54] LABS: Troponin I < 3 ng/L (<35)
[2025-02-19] MEDS: MAGNESIUM SULFATE 2 GM/50 ML BAG IV_INF (07:04)
--- NOTE | 2025-02-19 07:10 | DI.VRAD_ITS ---
PROCEDURE INFORMATION: Exam: XR Chest Exam date and time: 02/19/2025 5:51 AM Age: 39 years old Clinical indication: Other: Chest pain TECHNIQUE: Imaging protocol: Radiologic exam of the chest. Views: 2 views. COMPARISON: CR XR CHEST 2V PA LATERAL 07/01/2024 12:48 PM images without report. FINDINGS: Lungs: Lungs clear bilaterally. No consolidation. Pleural spaces: No pleural effusion. No pneumothorax. Heart/Mediastinum: Cardiac silhouette not enlarged. Bones/joints: Bones unremarkable. IMPRESSION: No acute findings. Dictated and Authenticated by: Taran Mcmahon MD. Orderin Maggy Cox MD
[2025-02-19 10:48] LABS: Glucose Negative (Negative)
[2025-02-19 10:58] LABS: WBC 0-2 HPF (0-5)
[2025-02-19 10:59] LABS: C & S Indicated? No; RBC 0-2 HPF (0-2)
--- NOTE | 2025-02-19 11:00 | RT.EKG_ITS ---
APPROVED REPORT Exam: Resting ECG Reason for Exam: long qt Patient Location: E HR:88 bpm ECG Measurements Heart Rate 88 AXIS [place] 120 P 13 QRSd 79 QRS 40 QT 419 T 32 QTc 507 Conclusion Sinus rhythm...normal P axis, V-rate 60- 99 prolonged QTc
[2025-02-19] MEDS: Metoclopramide 10 MG/2 ML VIAL IVP (11:01)
[2025-02-19] MEDS: Normal Saline 50 ML 600 ML (11:01)
--- NOTE | 2025-02-19 13:30 | W.EDPROG ---
Date of service: 02/19/25 Time of Service: 13:30 Medical Decision Making Care was signed out by Dr. Winter, please see her documentation regarding initial ED presentation course. Plan at signout was to follow-up urinalysis and repeat EKG to assess QT interval. Repeat EKG reviewed and interpreted by me: Please report, QTc 507 -still prolonged but this is improved from earlier 540. Urinalysis reviewed and is not consistent with a urinary tract infection. Patient was given Reglan and was feeling much better on reassessment. Tolerating p.o. intake. All results discussed. Plan for discharge with close outpatient follow-up with PCP. Usual and customary discharge instructions reviewed. Patient was instructed to stop using marijuana which she agreed to. Lab Data Lab results reviewed: Yes I reviewed the patient's lab results. Labs: Laboratory Tests Range/Units 02/19/25 02/19/25 02/19/25 05:03 06:19 10:40 WBC (4.4-10.8) 10^3/uL 13.84 H RBC (3.93-5.22) 10^6/uL 4.73 Hgb (11.2-15.7) g/dL 12.8 Hct (36.0-46.0) % 37.5 MCV (80-95) fL 79 L MCH (27.0-33.0) pg 27.1 MCHC (32.0-36.0) % 34.1 RDW (11.7-14.6) % 13.8 Plt Count (130-400) 10^3/uL 450 H MPV (8.0-11.0) fL 10.7 Immature Gran % % 0.3 Neutrophils % % 64.2 Lymphocytes % % 26.4 Monocytes % % 8.4 Eosinophils % % 0.1 Basophils % % 0.6 Nucleated RBC % (0.0-0.3) % 0.0 Absolute Neutrophils (1.2-6.7) 10^3/uL 8.89 H Absolute Lymphocytes (1.2-3.4) 10^3/uL 3.65 H Absolute Monocytes (0.1-0.8) 10^3/uL 1.16 H Absolute Eosinophils (0.0-0.7) 10^3/uL 0.01 Absolute Basophils (0.0-0.2) 10^3/uL 0.08 Sodium (136-145) mmol/L 142 Potassium (3.5-5.1) mmol/L 3.2 L Chloride (98-107) mmol/L 106 Carbon Dioxide (20.0-31.0) mmol/L 19.8 L Anion Gap (3-11) mmol/L 16.2 H BUN (9-23) mg/dL 14 Creatinine (0.55-1.02) mg/dL 0.76 Est GFR (CKD-EPI 2020) (mL/min/1.73m2) 84.23 Glucose (74-106) mg/dL 133 H Calcium (8.3-10.6) mg/dL 10.0 Magnesium (1.6-2.6) mg/dL 1.9 Total Bilirubin (0.2-1.2) mg/dL 0.60 AST (<34) U/L 25 ALT (10-49) U/L 13 Alkaline Phosphatase (46-116) U/L 68 Troponin I (<35) ng/L < 3 < 3 Total Protein (5.7-8.2) g/dL 8.2 Albumin (3.2-5.0) g/dL 5.0 Lipase (<53) U/L 39 Serum HCG, Qual Negative Urine Color (Yellow) Yellow Urine Clarity (Clear) Clear Urine pH (5-8) 6.0 Ur Specific [place] (1.005-1.025) >= 1.030 H Urine Protein (Neg-Trace) mg/dL Negative Urine Ketones (Negative) mg/dL >=160 H Urine Blood (Negative) Small H Urine Nitrite (Negative) Negative Urine Bilirubin (Negative) Negative Urine Urobilinogen (Up to 0.2) mg/dL 0.2 Ur Leukocyte Esterase (Negative) Negative Urine RBC (0-2) HPF 0-2 Urine WBC (0-5) HPF 0-2 Ur Epithelial Cells (Negative) HPF Rare Urine Crystals (Negative) HPF Negative Urine Bacteria (Negative) HPF Few Urine Casts (Negative) LPF 0-2 Hyaline Urine Mucus (Negative) Moderate Ur Culture Indicated? No Urine Glucose (Negative) mg/dL Negative Discharge Plan Disposition Patient Disposition: Home Condition: Stable Discharge Details Clinical Impression: Cannabinoid hyperemesis syndrome, Hypokalemia, Prolonged Q-T interval on ECG Primary Care Provider: Shahram Guzmán ED Provider: Jag Choudhary Home Meds and New Rx's Prescriptions: New metoclopramide HCl [Reglan] 10 mg tablet 10 mg PO Q6H PRNQty: 30 0RF Continued triamcinolone acetonide 0.1 % cream 1 applic topical TID PRN (Reason: rash) Qty: 30 0RF medroxyprogesterone [Depo-Provera] 150 mg/mL syringe 150 mg IM [id number] Qty: 1 4RF Discontinued clonazepam [Klonopin] 0.5 mg tablet 0.5 mg PO QHS Qty: 5 0RF Rx Instructions: administer 30 minutes before bedtime sertraline 50 mg tablet 50 mg PO DAILY Qty: 90 3RF Discharge Instructions Instructions: Nausea and Vomiting, Adult ED Additional Instructions: EKG today revealed an abnormal interval. Your QT is prolonged. Please be sure to discuss this with your primary care physician. Please follow-up with your primary care physician. Call tomorrow. Stop using marijuana entirely. Return to the emergency department immediately for any worsening or new concerning symptoms. Stand Alone Forms: Portal Information
== END 2025-02-19 14:00 | disposition home or self-care (01) ==
PROVIDERS: Student in an Organized Health Care Education/Training Program; Emergency Provider Student in an Organized Health Care Education/Training Program; PCP Nurse Practitioner Family
DX: R07.9 Chest pain, unspecified; R11.2 Nausea with vomiting, unspecified; R94.31 Abnormal electrocardiogram [ECG] [EKG]; E87.6 Hypokalemia; R11.16 Cannabis hyperemesis syndrome
CPT/HCPCS: 00123; 36415; 80053; 83690; 93005; 96361; 96365; 96366; 96375; 99284; 71046; 81003; 81015; 83735; 84484; 84703; 85025; 93010; J2060; J2765; J3475; J3480

== ENCOUNTER 2025-02-21 03:16 | Emergency (ER) | payer BC, SELFPAY ==
[2025-02-21] VITALS (27 sets, daily range): BP systolic 176; BP diastolic 79; PULSE 61–100; RESP 14–25; TEMP 36.6; O2SAT 97–100
--- NOTE | 2025-02-21 03:23 | ED.GENADUL_ITS ---
Discharge Plan Disposition Patient Disposition: Home Condition: Improving Discharge Details Clinical Impression: Nausea & vomiting, Hypokalemia Primary Care Provider: Shahram Guzmán ED Provider: Yrn Lockett [place] Meds and New Rx's Prescriptions: New lorazepam [Ativan] 1 mg tablet 1 mg PO BID PRN (Reason: nausea and vomiting) Qty: 6 0RF prochlorperazine 25 mg suppository 25 mg NV BID PRN (Reason: nausea and vomiting) Qty: 12 0RF Continued triamcinolone acetonide 0.1 % cream 1 applic topical TID PRN (Reason: rash) Qty: 30 0RF medroxyprogesterone [Depo-Provera] 150 mg/mL syringe 150 mg IM [id number] Qty: 1 4RF Discontinued metoclopramide HCl [Reglan] 10 mg tablet 10 mg PO Q6H PRNQty: 30 0RF Discharge Instructions Instructions: Nausea and Vomiting, Adult ED Additional Instructions: You were seen for recurrent nausea and vomiting which responded to lorazepam and fluids. Continue to hold use of ondansetron as well as metoclopramide. Prescriptions for oral lorazepam and prochlorperazine suppositories have been sent to pharmacy. Clear liquid diet for today. May begin to advance slowly tomorrow if tolerating. Reschedule your follow-up appointment for later this we ek. Return to ED for fever, abdominal pain, bloody diarrhea, persistent vomiting, other concerns. Stand Alone Forms: Portal Information Referrals: Shahram Guzmán, TELEPHONE ORDER DISPATCHER [Primary Care Provider, Medicine] [facility] General Mode of arrival: ambulatory . Date/Time Provider Initiated Documentation: 02/21/25 03:23 . Limitations to Documentation: no limitations . Information obtained by: patient, RN notes reviewed and old records reviewed . HPI Narrative: Patient returns to ED with persistent nausea and vomiting. Denies any abdominal pain. Initially presented in the [facility] on the seventh with vomiting and diarrhea. Found to have prolonged QT, hypokalemia and hypomagnesemia. Treated with lorazepam and metoclopramide. She was discharged on the afternoon of the . Since being at home has had persistent vomiting and constant nausea. Has burning in her chest especially after vomiting. Is no longer having diarrhea but has not been able to keep anything down. Not really producing much urine at home. Tried metoclopramide suppository and oral lorazepam without relief. Has appointment to see primary care today on the night but could no longer tolerate the persistent nausea and vomiting and returns to ED. She has not had fever. She denies shortness of breath. She does have a history of cannabis hyperemesis syndrome but she feels this is different and is not responding to typical treatments she has used before. She is also feeling extremely restless and anxious which is new for her. Related Data Home Medications ?Medication ?Instructions ?Recorded ?Confirmed triamcinolone acetonide 0.1 % 1 applic topical TID PRN rash #30 05/17/24 02/21/25 topical cream grams medroxyprogesterone 150 mg/mL 150 mg IM [id number] #1 mL 09/28/24 02/21/25 intramuscular syringe (Depo-Provera) lorazepam 1 mg tablet (Ativan) 1 mg PO BID PRN nausea and 02/21/25 vomiting #6 tabs prochlorperazine 25 mg rectal 25 mg NV BID PRN nausea and 02/21/25 suppository vomiting #12 ea Previous Rx's ?Medication ?Instructions ?Recorded triamcinolone acetonide 0.1 % 1 applic topical TID PRN rash #30 05/17/24 topical cream grams medroxyprogesterone 150 mg/mL 150 mg IM [id number] #1 mL 09/28/24 intramuscular syringe (Depo-Provera) lorazepam 1 mg tablet (Ativan) 1 mg PO BID PRN nausea and 02/21/25 vomiting #6 tabs prochlorperazine 25 mg rectal 25 mg NV BID PRN nausea and 02/21/25 suppository vomiting #12 ea Allergies Allergy/AdvReac Type Severity Reaction Status Date / Time acetaminophen (From Percocet) Allergy Unsure Unverified 02/21/25 03:25 Opioids - Morphine Analogues Allergy Unknown Unverified 02/21/25 03:25 oxycodone (From Percocet) Allergy Unknown Unverified 02/21/25 03:25 General ANA: 2 Exam Narrative Exam Narrative: Const: WDWN female in NAD. VS per triage. HEENT: NC/AT. Normal facial exam. Neck: Supple. Trachea midline. Lungs: Normal respiratory effort. Lungs are clear. Cor: RRR without murmur. Good radial pulses. GI: Soft/ND/NT. Neuro: A+O x 3. Normal speech, mentation, gait. Cranial nerves II - XII grossly intact. No gross motor or sensory deficit. Ext: No C/C/E. Medical Decision Making Patient returns to ED with continued nausea and vomiting. No longer having diarrhea but is also not tolerating anything orally. Is having minimal urine output. Denies having any type of abdominal pain and has benign abdomen on exam. Vital signs are reassuring. She is also quite restless and anxious and potentially having some adverse effects from metoclopramide. Will reestablish IV and start fluids. Will begin with IV lorazepam for her anxiety and nausea. Repeat laboratory studies and EKG ordered. 04:50 - EKG now shows a QT interval that when corrected is 483. She has normal axis and no acute ST changes. Her labs look ok. She is alkalotic from hyperventilating. Electrolytes ok except for potassium which is a little low at 3.3, will give IV replacement. Anion gap elevated and bicarb low normal due to excessive vomiting, plan 2nd liter of fluid. CBC and LFTs are normal. Patient reports feeling better with no nausea currently. 06:30 - Patient continues to feel ok without nausea. Will try ice chips. Will plan discharge home with prescriptions for lorazepam orally and prochlorperazine suppositories. Continue to hold ondansetron given her previous prolonged QT, Would also hold metoclopramide in case this was causing the anxiousness and restlessness. Clear liquid diet at least for today. Rescheduled follow-up for later in the week. Return precautions provided. Medical Records Medical records reviewed: Yes I reviewed the patient's medical records. Medical records narrative: [place] [facility] site. Lab Data Lab results reviewed: Yes I reviewed the patient's lab results. 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) Personal history of cardiac murmur (Acute) Hearing loss (Acute) Restless legs (Acute) Encounter for surveillance of injectable contraceptive (Acute) Arthritis (Acute) Dysthymic disorder (Acute) Nontoxic goiter (Acute) Anxiety (Chronic) Surgical History H/O hand surgery R hand tendon surgery Family History (Updated 11/24/23 @ 11:23 by Rachel Park NP) Father Alcohol use disorder Hyperlipidemia Substance use disorder Chronic mental illness Maternal Grandfather Cancer Colon cancer Mother Heart failure Social History Smoking/Tobacco Use Status: Former Tobacco Use tobacco type: cigarettes Quit Date: 03/16/14 Tobacco: How many years used: 3 Second Hand Exposure: Yes Smoking risk assessment performed?: Yes Alcohol Intake: current Alcohol Intake frequency: holidays/special occasions only Alcohol type: wine Drug use: Daily Substance use type: marijuana Details: 02/17 was last time she consumed THC Adopted: No Caregiver/Support person: No Foster care: No Household members: none Housing: house Number of Children: 0 Communication Needs: Hard of Hearing Education Level: college Details: some Do you need help understanding health information?: Rarely current occupation: [employer] Pets and animals: Yes Pets and animals: cat(s) Sexually active: Yes Do you think of yourself as: straight/heterosexual Current gender identity: female How often do you talk on the phone with friends or family?: three or more times per week How often do you get together with friends or relatives?: twice per week How often do you attend muslim or bahai services?: 1-3 times per year Do you belong to any clubs or organized social groups?: no Panel score (0-1 are the most socially isolated patients): 1 Mariza/Denominational: Nondenominational Agree to transfusion: Yes Seatbelt use: sometimes Helmet use: Yes Helmet use: never Drive intox or ride w/intox courtesy driver: No Working smoke detector in home: Yes Carbon monox detector in home: No Firearms in home: No Do you feel safe at home: Yes Do you feel safe in your relationship?: Yes Victim of physical abuse: No Victim of emotional abuse: No Victim of sexual abuse: No Female Reproductive History Menstrual control method: progesterone injection History History 0 Para Hx # Term Pregnancies Multiple births Hx # Pregnancies Ectopic pregnancies AB induced Hx Number of Living Children AB spontaneous
--- NOTE | 2025-02-21 03:30 | RT.EKG_ITS ---
APPROVED REPORT Exam: Resting ECG Reason for Exam: qT monitoring Patient Location: E HR:95 bpm ECG Measurements Heart Rate 95 AXIS IN 119 P 56 QRSd 77 QRS 46 QT 384 T 36 QTc 483 Conclusion Sinus rhythm...normal P axis, V-rate 60- 99 Normal [place]. QTc now normal. No acute ST changes.
[2025-02-21] MEDS: Lactated Ringers 1,000 ML 1000 ML IV ×2 (03:52→05:16)
[2025-02-21 03:57] LABS: BE (Venous) -3 mmol/L (-2-3); HCO3 (Venous) 21 mmol/L (23-28); O2 Sat (Venous) 88 %; TCO2 (Venous) 19 mmol/L (24-29); pCO2 (Venous) 31 mmHg (41-51); pO2 (Venous) 53 mmHg
[2025-02-21 03:59] LABS: Abs Immature Grans 0.03 10^3/uL (0.0-0.06); HCT 36.8 % (36.0-46.0); HGB 12.4 g/dL (11.2-15.7); Immature Grans % 0.3 %; MCH 27.0 pg (27.0-33.0); MCHC 33.7 % (32.0-36.0); MCV 80 fL (80-95); MPV 10.2 fL (8.0-11.0); Platelet Count 384 10^3/uL (130-400); RBC 4.60 10^6/uL (3.93-5.22); RDW 13.7 % (11.7-14.6); RDW-SD 40.0 fL; WBC 9.60 10^3/uL (4.4-10.8)
[2025-02-21] MEDS: LORazepam 2 MG/ML VIAL 1 MG IVP (04:01)
[2025-02-21 04:16] LABS: Lipase 33 U/L (<53); Magnesium 2.0 mg/dL (1.6-2.6)
[2025-02-21 04:18] LABS: ALT 14 U/L (10-49); AST 21 U/L (<34); Albumin 4.8 g/dL (3.2-5.0); Alkaline Phosphatase 62 U/L (46-116); Anion Gap 15.9 mmol/L (3-11); BUN 14 mg/dL (9-23); Bilirubin, Total 0.80 mg/dL (0.2-1.2); CO2 20.1 mmol/L (20.0-31.0); Calcium 9.0 mg/dL (8.3-10.6); Chloride 107 mmol/L (98-107); Glucose 98 mg/dL (74-106); Potassium 3.3 mmol/L (3.5-5.1); Sodium 143 mmol/L (136-145); Total Protein 7.9 g/dL (5.7-8.2)
[2025-02-21 04:30] LABS: Troponin I < 3 ng/L (<35)
[2025-02-21] MEDS: POTASSIUM CHLORIDE 20 MEQ/100 ML BAG 50 MEQ IV_INF (05:17)
[2025-02-21] MEDS: LORazepam 1 MG TAB PO (07:56)
== END 2025-02-21 07:58 | disposition home or self-care (01) ==
LOC: ER 08:06
PROVIDERS: Emergency Provider Emergency Medicine; PCP Nurse Practitioner Family
DX: R11.2 Nausea with vomiting, unspecified (principal); E87.6 Hypokalemia
CPT/HCPCS: 99283; 99284; 36415; 96375; 80053; 82805; 83690; 93005; 96361; 96365; 96366; 83605; 83735; 84484; 85025; 93010; J2060; J3480

== ENCOUNTER 2025-02-24 11:01 | Outpatient (CLI) | payer BC, SELFPAY ==
--- NOTE | 2025-02-24 11:00 | RT.EKG_ITS ---
APPROVED REPORT Exam: Resting ECG Reason for Exam: ED FU Patient Location: O HR:98 bpm ECG Measurements Heart Rate 98 AXIS NJ 117 P 13 QRSd 86 QRS 27 QT 358 T 8 QTc 458 Conclusion Sinus rhythm...normal P axis, V-rate 50- 99 Borderline short [place] interval...NJ int <120mS Otherwise normal ECG
== END 2025-02-24 11:02 | disposition home or self-care (01) ==
LOC: DI.CM 11:02
PROVIDERS: PCP Nurse Practitioner Family; Visit Provider Nurse Practitioner Family
DX: R94.31 Abnormal electrocardiogram [ECG] [EKG] (principal)
CPT/HCPCS: 93010